=== PATIENT | female | born 1990 | race Caucasian/White ===

== ENCOUNTER 2021-07-31 15:45 | Observation (INO) | payer BC, SELFPAY ==
--- NOTE | ~2021-07-31 | US_ITS ---
EXAMINATION: US OB limited DATE: 07/31/2021 17:06 INDICATION: Light spotting, evaluate placental position and cervical length. TECHNIQUE: Real-time ultrasound of the pelvis was performed. COMPARISON: None. FINDINGS: There is a single living fetus in vertex presentation, in a longitudinal lie. The placenta is posteri or, 2.1 cm from the cervix. Cervix measures 3.9 cm and is closed without funneling. heart rate is 154 beats per minute (bpm). cardiac activity and movement are noted. The amniotic flu id volume is subjectively normal. IMPRESSION: 1. Single living fetus in vertex presentation. 2. Low-lying placenta. 3. The cervix is closed. Reviewed, dictated and finalized at location K.
[2021-07-31 16:15] VITALS: BMI 20.7
[2021-07-31 16:20] VITALS: BP 126/77; PULSE 91
[2021-07-31 17:12] LABS: Add Urine Microscopic? YES; Appearance Urine Slightly Cloudy (Clear); Bilirubin Urine Negative (Negative); Blood Urine 2+ (Negative); Color Urine Red (Yellow); Glucose Urine UA Negative (Negative); Ketones Urine Negative (Negative); Leukocyte Esterase Ur 2+ LEU/UL (Negative); Nitrate Urine Negative (Negative); Protein Urine 1+ mg/dL (Negative); Urobilinogen Urine 0.2 mg/dL (<2.0)
[2021-07-31 17:19] LABS: Squamous Epithelial Cell Urine Rare /hpf (Few); WBC Urine 0-3 /hpf
--- NOTE | 2021-07-31 18:23 | OBADM ---
This patient, Madison Read, admitted to the OB room OB Post [facility] for observation. Patient/family oriented to hospital policies and general routines including ID bracelet, bed and alarms, visiting hours, pain management, procedures, bathroom and other care routines, personal items, smoking policy, room service/diet, and visiting hours. Patient/Family are encouraged to report perceived risks to care and to ask questions if they do not understand what they are told or what they should do.
--- NOTE | 2021-08-08 13:28 | P.PNOB_ITS ---
OB - Triage/Final Diagnosis Visit Information Comments/Additional reasons for admission: I have assessed the risk for this patient, Madison Read, and determined that she would benefit from observation care. Evaluation Laboratory results: Laboratory Tests 07/31/21 16:42 Urine Color Red H Urine Appearance Slightly cloudy Urine pH 7.0 Ur Specific [place] 1.020 Urine Protein 1+ H Urine Glucose (UA) Negative Urine Ketones Negative Ur Blood (Man) 2+ H Urine Nitrate Negative Urine Bilirubin Negative Urine Urobilinogen 0.2 Leukocyte Esterase Rfl 2+ H Urine RBC 11-20 H Urine WBC 0-3 Ur Squamous Epith Cells Rare Final Diagnosis (1) False labor: Code(s): O47.9 - False labor, unspecified Status: Acute
== END 2021-07-31 18:24 | disposition home or self-care (01) ==
PROVIDERS: Admitting Provider Obstetrics & Gynecology; PCP Emergency Medicine; Visit Provider Obstetrics & Gynecology
DX: O47.02 False labor before 37 completed weeks of gestation, second trimester (principal); Z3A.23 23 weeks gestation of pregnancy
CPT/HCPCS: 76815; 81001; 87086; G0378; G0379

== ENCOUNTER 2021-11-20 06:27 | Inpatient (IN) | payer BC, SELFPAY ==
[2021-11-20] VITALS (45 sets, daily range): BP systolic 98–138; BP diastolic 43–87; PULSE 58–101; RESP 14–18; TEMP 36.6–37.7; O2SAT 98–100; BMI 26.2
--- NOTE | 2021-11-20 06:45 | LDADM ---
This patient, Madison Read, was admitted to Labor/Delivery/Recovery 107 on 11/20/21 at 06:27. Plans for labor, pain management and were discussed with patient. Patient/family oriented to hospital policies and general routines including ID bracelet, bed and alarms, visiting hours, pain management, procedures, bathroom and other care routines, personal items, smoking policy, room service/diet and guest tray routines, security routines, and visiting hours. Patient/Family are encouraged to report perceived risks to care and to ask questions if they do not understand what they are told or what they should do. See OBIX for further documentation.
[2021-11-20] MEDS: LACTATED RINGERS 1,000 ML 125 ML IV CONT ×2 (07:15→09:53)
[2021-11-20] MEDS: OXYTOCIN 30 UNITS/NS 500 ML 30 UNITS/500 ML BAG IV CONT (07:15)
[2021-11-20 07:18] LABS: Basophils Percent Auto 0.6 % (0.2-1.2); Hematocrit 29.5 % (37.0-47.0); Hemoglobin 8.9 g/dL (12.0-15.0); Immature Granulocyte Absolute 0.02 K/mm3 (0.00-0.031); Immature Granulocyte Percent A 0.3 % (0-0.5); Immature Platelet Fraction Pct 12.2 % (0.9-11.2); Lymphocytes Absolute Auto 1.86 K/mm3 (0.9-3.2); Lymphocytes Percent Auto 26.5 % (18.3-44.2); Mean Corpuscular HGB Conc 30.2 g/dl (32-36); Mean Corpuscular Hemoglobin 22.8 pg (26-34); Mean Corpuscular Volume 75.6 fl (80-100); Mean Platelet Volume 11.4 fl (7.4-10.4); Monocytes Absolute Auto 0.7 K/mm3 (0.1-0.6); Monocytes Percent Auto 9.3 % (2.6-8.5); Neutrophils Absolute Auto 4.4 K/mm3 (1.3-6.7); Neutrophils Percent Auto 63.3 % (45.5-73.1); Platelet Count Result 157 k/mm3 (150-375); Red Cell Distribution Width 15.6 % (11.5-14.5)
--- NOTE | 2021-11-20 08:49 | WPDOBADMIT ---
Obstetrics - Admit Note Admission Note: record reviewed. Additions to the history and/or subsequent changes in the physical findings follow. 31 y/o G2 1001 at 39 3/7 weeks here for induction of labor. GBS neg. AVSS NST reactive TOCO: contractions every 2-3 min ABD soft, nontender, gravid, vertex EXT nontender Cervix 4/80/-2. AROM with clear fluid. Vertex. A: IUP at term with favorable cervix, desiring induction of labor. P: Oxytocin. Anticipate .
[2021-11-20] MEDS: fentaNYL CITRATE INJ (*CRX) 100 MCG/2 ML VIAL 50 MCG IV PUSH (09:46)
--- NOTE | 2021-11-20 09:53 | WPDANESEPPF ---
Anes - Initial Pre Proc Eval Date/Time: 11/20/21 09:53 Surgeon: Prem Esparza MD Pre Op Diagnosis: iol Patient Data Age: 31 Gender: F Height: 1.6 m Weight: 67 kg Last Vital Signs Temp 36.6 C 11/20/21 08:36 Pulse 76 11/20/21 07:16 BP 124/78 11/20/21 07:16 O2 Del Method Room Air 11/20/21 06:44 Allergies Allergy/AdvReac Type Severity Reaction Status Date / Time latex Allergy Unknown Swelling Verified 11/02/21 12:34 Penicillins Allergy Unknown Rash Verified 11/02/21 12:34 Home Medications Medication Instructions Recorded Confirmed Type prenat.vits,ben,mwj-awii-syizf 1 tablet PO DAILY 11/02/21 11/02/21 History Laboratory Tests 11/20/21 11/20/21 11/20/21 06:47 06:47 06:47 WBC 7.0 K/mm3 K/mm3 (4.5-10.0) RBC 3.90 M/mm3 L M/mm3 (4.2-5.4) Hgb 8.9 g/dL L g/dL (12.0-15.0) Hct 29.5 % L % (37.0-47.0) MCV 75.6 fl L fl (80-100) MCH 22.8 pg L pg (26-34) MCHC 30.2 g/dl L g/dl (32-36) RDW 15.6 % H % (11.5-14.5) Plt Count 157 k/mm3 k/mm3 (150-375) MPV 11.4 fl H fl (7.4-10.4) Immature Gran % (Auto) 0.3 % % (0-0.5) Neut % (Auto) 63.3 % % (45.5-73.1) Lymph % (Auto) 26.5 % % (18.3-44.2) [place] % (Auto) 9.3 % H % (2.6-8.5) Eos % (Auto) 0.0 % % (0-4.4) Baso % (Auto) 0.6 % % (0.2-1.2) Lymph # (Auto) 1.86 K/mm3 K/mm3 (0.9-3.2) [place] # (Auto) 0.7 K/mm3 H K/mm3 (0.1-0.6) Eos # (Auto) 0.0 K/mm3 K/mm3 (0-0.3) Baso # (Auto) 0.0 K/mm3 K/mm3 (0.0-0.1) Abs Immat Gran (auto) 0.02 K/mm3 K/mm3 (0.00-0.031) Absolute Neuts (auto) 4.4 K/mm3 K/mm3 (1.3-6.7) Absolute Nucleated RBC 0.0 K/mm3 K/mm3 (0.0-0.012) Nucleated RBC % 0.0 % % (0.0-0.2) % Immature Plt Fraction 12.2 % H % (0.9-11.2) RPR Pending Blood Type A Positive Antibody Screen Negative Patient hx anesthesia problems: none Family hx anesthesia problems: none Results Review: All pre-operative results and documents have been reviewed as part of the pre-operative evaluation. [facility] Family History Family History (Updated 11/02/21 @ 12:38 by Pieter Grace RN) Father AVM (arteriovenous malformation) brain Kidney carcinoma Cerebrovascular accident Hypertension Mother Fibromyalgia Gestational diabetes Social History Social History Smoking status: Never smoker Alcohol intake: current Substance use: never Spiritual care concerns: No Anes - Eval Final PreProcedure Day of Procedure 11/20/21 09:53 Patient weight: overweight Heart: regular rate and rhythm Lungs: clear to auscultation and normal air movement Airway: Mallampati scale class II Neurological: alert and oriented Last oral intake: >/= 8 hours ASA classification: II Emergent: no Anesthetic plan: proceed Anesthesia type and monitoring: regional epidural Results Review: All pre-operative results and documents have been reviewed as part of the pre-operative evaluation. Informed Consent: The patient's anesthetic plan and its attendant risks and benefits were discussed with the patient/family/POA. Questions were solicited and answers provided to the satisfaction of the patient/family/POA.
--- NOTE | 2021-11-20 12:35 | PM.OBPNLAB ---
Pain Control Date/time seen: 11/20/21 12:35 Comfortable with epidural. AVSS NST reactive TOCO: contractions every 2-3 min Cervix C/+2 Begin pushing.
[2021-11-20 12:37] LABS: Amphetamine Screen Urine Negative (Negative); Barbiturate Screen Urine Negative (Negative); Benzodiazepines Screen Urine Negative (Negative); Cannabinoid Screen Urine Negative (Negative); Cocaine Screen Urine Negative (Negative); Methadone Screen Urine Negative (Negative); Opiate Screen Urine Negative (Negative); Phencyclidine Screen Urine Negative (Negative)
[2021-11-20] MEDS: METHYLERGONOVINE MALEATE 0.2 MG/ML VIAL IM (13:50)
[2021-11-20] MEDS: miSOPROStol 200 MCG TABLET 800 MCG RECTAL (13:58)
--- NOTE | 2021-11-20 14:05 | PM.OBPRVD ---
OB - Delivery Note Procedure Delivery date: 11/20/21 Procedure: Induction of labor with Induction method: Per Pitocin Protocol Delivery augmentation: Rupture of Membranes Delivery monitor: External FHT and External Uterine Route of delivery: Laceration Description: Labial Delivery repair: vicryl (3-0) Specimen: Yes (cord blood) Quantitative Blood Loss (ml): 550 Anesthesia type: Epidural Disposition: PACU Complications: None Narrative: 31 y/o at 39 3/7 weeks gestation who presented to the hospital for induction of labor. Oxytocin was administered intravenously. Amniotomy was performed with return of clear fluid. She received an epidural for pain control. Her labor progressed and her cervix dilated completely. She pushed with good effort and delivered the infant's head to the perineum, followed by the body. The nose and mouth were bulb suctioned. After a delay, the cord was clamped and cut. The was handed off the field. Cord blood was collected. The placenta delivered spontaneously and was grossly normal in appearance. The usual 3 vessel cord was noted. A right labial laceration was sustained. This was reapproximated using 3 0 Vicryl in interrupted figure of eight fashion. Vaginal bleeding associated with uterine atony was addressed with IV oxytocin, uterine massage, methergine 0.2 mg IM x 1, and Cytotec 800 mcg OR x 1. Excellent hemostasis resulted as did excellent reapproximation of the normal anatomy. Needle and instrument counts were correct. The patient was taken to recovery room in stable condition. The went to the nursery in stable condition. I was present and scrubbed for the entire delivery. Baby Date of : 11/20/21 Time of : 13:42 Weeks of gestation at delivery: 39 gender: Male Weight (pounds): 9 Weight (ounces): 1 presentation: vertex position: Right Occiput Anterior Placenta delivery description: Spontaneous and Normal Configuration Cord Vessel Description: 3 Vessels and Delayed Cord Clamping score one minute: 9 score five minutes: 9
--- NOTE | 2021-11-20 14:10 | PM.OBDSVD ---
DS: Admitting Diagnosis Discharge Date 11/22/21 Admitting Diagnosis IUP at 39 3/7 weeks DS: Discharge Diagnosis Discharge Diagnosis (1) (normal spontaneous vaginal delivery): Code(s): O80 - Encounter for full-term uncomplicated delivery Status: Acute OB - DS: Summary OB Procedures : None OB Procedures Intrapartum: Spontaneous Vag Delivery OB Procedures: : None Time Spent with Patient Time attestation: Total time spent providing and/or coordinating discharge services: DS: Data Data Completed and Pending Labs on day of discharge: Labs from last 24 hours 11/20/21 11/20/21 11/20/21 11:49 06:47 06:47 WBC RBC Hgb Hct MCV MCH MCHC RDW Plt Count MPV Immature Gran % (Auto) Neut % (Auto) Lymph % (Auto) [place] % (Auto) Eos % (Auto) Baso % (Auto) Lymph # (Auto) [place] # (Auto) Eos # (Auto) Baso # (Auto) Abs Immat Gran (auto) Absolute Neuts (auto) Absolute Nucleated RBC Nucleated RBC % % Immature Plt Fraction Urine Opiates Screen Negative Urine Methadone Screen Negative Ur Barbiturates Screen Negative Ur Phencyclidine Scrn Negative Ur Amphetamine Screen Negative U Benzodiazepines Scrn Negative Urine Cocaine Screen Negative U Cannabinoids Screen Negative RPR Pending Blood Type A Positive Antibody Screen Negative 11/20/21 06:47 WBC 7.0 RBC 3.90 L Hgb 8.9 L Hct 29.5 L MCV 75.6 L MCH 22.8 L MCHC 30.2 L RDW 15.6 H Plt Count 157 MPV 11.4 H Immature Gran % (Auto) 0.3 Neut % (Auto) 63.3 Lymph % (Auto) 26.5 [place] % (Auto) 9.3 H Eos % (Auto) 0.0 Baso % (Auto) 0.6 Lymph # (Auto) 1.86 [place] # (Auto) 0.7 H Eos # (Auto) 0.0 Baso # (Auto) 0.0 Abs Immat Gran (auto) 0.02 Absolute Neuts (auto) 4.4 Absolute Nucleated RBC 0.0 Nucleated RBC % 0.0 % Immature Plt Fraction 12.2 H Urine Opiates Screen Urine Methadone Screen Ur Barbiturates Screen Ur Phencyclidine Scrn Ur Amphetamine Screen U Benzodiazepines Scrn Urine Cocaine Screen U Cannabinoids Screen RPR Blood Type Antibody Screen Discharge Plan Discharge Attending physician on discharge: Prem Esparza Discharging Clinician: Prem Esparza Patient Disposition: Home, Self-Care Activity: pelvic rest Diet: regular Discharge Instructions: Education: Mom and Baby Guide Given to: Mother Follow-Up: Call your delivering provider's office for an appointment to be seen in: 6 Weeks Mom and baby should come to the [facility] for the follow-up appointment. Appointment Date/Time: November 23, 2021 at 3:30 pm What to expect at your follow-up visit: Blood Pressure Check Call [phone] if you are unable to keep your appointment time. BREAST CARE: * Wear a snug supportive bra. * For engorgement discomfort: Breast Feeding: * Apply warm moist washcloths * Express milk as needed to relieve engorgement * Wear loose clothing Bottle Feeding: * May apply ice packs * For sore nipples: * Identify correct latch-on * Apply warm moist washcloths before and after nursing * Air dry nipples after nursing * May apply Lansinoh cream to nipples PERINEAL CARE: * Until bleeding stops, use your hesham bottle after urinating * Change your pad frequently throughout the day * You may take sitz baths several times a day (fill your bathtub with warm water and soak for 20 minutes.) Do NOT bathe in the water * No tub baths until seen by your physician - You may shower ACTIVITY: * Rest as much as possible. * Do not exercise or lift anything heavier than your baby (such as laundry or other children.) * Avoid stairs or driving as much as possible. * Do not put anything into the vagina. No douching, tampons, or sexual activity until seen by physician. NOTIFY PHYSICIAN
[2021-11-20 15:24] LABS: Rapid Plasma Reagin Non-Reactive (NonReactive)
[2021-11-20] MEDS: WITCH HAZEL 40 PADS 1 PAD TOPICAL (16:50)
[2021-11-20] MEDS: BENZOCAINE 20% AER SPR (*SP) 56 GM CAN 1 SPRAY TOPICAL (16:50)
[2021-11-20] MEDS: ONDANSETRON INJ 4 MG/2 ML VIAL IV PUSH (16:59)
[2021-11-21] MEDS: IBUPROFEN 600 MG TABLET PO ×3 (02:09→17:11)
[2021-11-21 05:30] VITALS: BP 101/74; PULSE 92; RESP 16; TEMP 35.8
[2021-11-21 05:51] LABS: Hematocrit 23.4 % (37.0-47.0)
--- NOTE | 2021-11-21 08:12 | PM.OBPNVD ---
OB - PN: Subj Subjective Date/time seen: 11/21/21 08:12 Narrative: Pain OK. Desires circumcision for son. No shortness of breath, chest pain or lightheadedness. OB - PN: Obj Data Labs CBC & Chem 7: 11/21/21 05:36 Labs: Laboratory Results - last 24 hr 11/20/21 11/20/21 11/20/21 06:47 06:47 11:49 Hgb Hct Urine Opiates Screen Negative Urine Methadone Screen Negative Ur Barbiturates Screen Negative Ur Phencyclidine Scrn Negative Ur Amphetamine Screen Negative U Benzodiazepines Scrn Negative Urine Cocaine Screen Negative U Cannabinoids Screen Negative RPR Non-reactive Blood Type A Positive Antibody Screen Negative 11/21/21 05:36 Hgb 7.0 L Hct 23.4 L Urine Opiates Screen Urine Methadone Screen Ur Barbiturates Screen Ur Phencyclidine Scrn Ur Amphetamine Screen U Benzodiazepines Scrn Urine Cocaine Screen U Cannabinoids Screen RPR Blood Type Antibody Screen OB - PN A/P Plan Comments: A: PPD#1, doing well. P: Reviewed circ. Routine care. Exam Psych: Other: AVSS ABD soft, nontender, fundus firm EXT nontender
[2021-11-21 08:20] VITALS: BP 110/76; PULSE 86; RESP 16; TEMP 36.5; O2SAT 100
[2021-11-21] MEDS: POLYSACCHARIDE IRON COMPLEX 150 MG CAPSULE PO ×2 (08:28→17:11)
[2021-11-21] MEDS: DOCUSATE SODIUM 100 MG CAPSULE PO ×2 (08:29→17:11)
[2021-11-21] MEDS: MULTIVIT/MIN/PREN/FOL AC/IRON TABLET 1 TAB PO (08:29)
[2021-11-21] MEDS: LANOLIN (LANSINOH) 7.5 GM CREAM 1 APPLIC TOPICAL (08:30)
--- NOTE | 2021-11-21 09:46 | PC.NURSE ---
0828 - Introductions were made, then consulted with patient to assess needs related to . Mother led the conversation with her?plans to feed?her and the?experience so far. Resources provided for inpatient and outpatient services using a resource guide and mom/baby guide. Mother voiced understanding of information and will call if there is a request for assistance. Reported to primary RN.
--- NOTE | 2021-11-21 09:52 | WPDANLDPN2 ---
Anes-Prog Note L&D Date/Time: 11/21/21 09:52 Comfortable throughout: labor and delivery Neuraxial method: epidural Epidural/Spinal procedure site: clean & non-tender Neuro status: Neuro function grossly intact. Cardiovascular status: normal Respiratory status: normal Airway patency: baseline Mental status: baseline Post-Op hydration status: normal Vital Signs: Last Vital Signs Temp 97.7 F 11/21/21 08:20 Pulse 86 11/21/21 08:20 Resp 16 11/21/21 08:20 BP 110/76 11/21/21 08:20 Pulse Ox 100 11/21/21 08:20 O2 Del Method Room Air 11/20/21 18:00 Pain score (VAS): 0/10 I/O: Intake & Output 11/20/21 11/21/21 11/21/21 23:59 07:59 15:59 Intake Total 0 240 Balance 0 240 Post-procedural complaints: none Patient feedback: Patient satisfied with anesthetic care.
[2021-11-21 12:00] VITALS: BP 99/65; PULSE 78; RESP 16; TEMP 36.4; O2SAT 100
[2021-11-21 18:30] VITALS: BP 118/70; PULSE 97; RESP 18; TEMP 36.7; O2SAT 98
[2021-11-22 08:15] VITALS: BP 124/72; PULSE 82; RESP 16; TEMP 36.2; O2SAT 99
--- NOTE | 2021-11-22 08:30 | PC.NURSE ---
PT introductions made and plan of care discussed per post , breast pumping and bottle feeding, daily care activities and pain management and pending discharge. PT and sole recipient of such instructions and no barriers to learning identified at this time. PT received such instructions this shift per one to one discussion, mom baby care guide and demonstrations. PT verbalized understanding of such care.
[2021-11-22] MEDS: DOCUSATE SODIUM 100 MG CAPSULE PO (08:33)
[2021-11-22] MEDS: MULTIVIT/MIN/PREN/FOL AC/IRON TABLET 1 TAB PO (08:33)
[2021-11-22] MEDS: IBUPROFEN 600 MG TABLET PO (08:35)
[2021-11-22] MEDS: POLYSACCHARIDE IRON COMPLEX 150 MG CAPSULE PO (08:35)
[2021-11-22] MEDS: ACETAMINOPHEN 325 MG TABLET 650 MG PO (08:37)
--- NOTE | 2021-11-22 11:52 | PM.OBPNVD ---
OB - PN: Subj Subjective Date/time seen: 11/22/21 11:52 Narrative: Pain OK. Would like to go home. OB - PN: Obj Data Labs CBC & Chem 7: 11/21/21 05:36 OB - PN A/P Assessment and Plan (1) (normal spontaneous vaginal delivery): Code(s): O80 - Encounter for full-term uncomplicated delivery Status: Acute Plan Comments: A: PPD#2, doing well. P: Home to f/u 6 weeks. Exam Psych: Other: AVSS ABD soft, nontender, fundus firm EXT nontender
--- NOTE | 2021-11-22 13:12 | PC.NURSE ---
1200 - Mother led the conversation with her experience and plan to feed her so far and her ability to independently latch infant optimally without discomfort. Reminded parents to use good handwashing technique to prevent infection. Mother is feeding appropriately for growth of infant and understands stimulating to eat if needed. has had appropriate feedings in the last 24 hours meets the outcomes for weight, output and jaundice at this time. Mother states she is confident to continue effectively her infant at home or when to call for assistance and denies any additional assistance or education at this time. Reinforced understanding of milk production, transition of milk, signs of adequate intake, prevention/relief of engorgement, responsive after visualizing feeding cues, the different methods of stimulating to breastfeed 2-3 hours after the start of the last feeding, community resources, medication information reviewed per [facility] and when to call a provider using the resource of the mom and baby guide/[facility] website. Mother voiced understanding of the education shared.
--- NOTE | 2021-11-22 13:30 | PC.NURSE ---
PT received discharge instructions per protocol and verbalized understanding of such care
--- NOTE | 2021-11-22 13:55 | PC.NURSE ---
Pt discharged to home ambulatory accompanied by spouse and and taken to waiting car. Follow up appts confirmed
[2021-11-23 15:59] VITALS: BP 121/71; PULSE 104; RESP 20; TEMP 36.8; O2SAT 99
== END 2021-11-22 13:55 | disposition home or self-care (01) | DRG 807 ==
LOC: ANHLDR 14:11 → ANHOB2 17:12
PROVIDERS: Admitting Provider Obstetrics & Gynecology; PCP Emergency Medicine; Visit Provider Obstetrics & Gynecology
DX: O70.0 First degree perineal laceration during delivery (principal); Z37.0 Single live birth; Z3A.39 39 weeks gestation of pregnancy
CPT/HCPCS: 36415; 80307; 85014; 85018; 85025; 85055; 86592; 86850; 86900; 86901; A9270; J2210; J2405; J2590; J2795; J3010; J7120

== ENCOUNTER 2022-01-13 17:57 | Emergency (ER) | payer BC, SELFPAY ==
[2022-01-13 18:15] VITALS: BP 141/79; PULSE 102; RESP 18; TEMP 37.2; O2SAT 99
--- NOTE | 2022-01-13 19:25 | ED.URI ---
HPI - URI/Sore Throat General Chief Complaint: Upper Respiratory Infection Stated Complaint: sorethroat Time Seen by Provider: 01/13/22 19:19 Source: patient Mode of arrival: ambulatory Limitations: no limitations History of Present Illness HPI Narrative: Patient presents today with a 3 day history of sore throat with a fever up to 100.8 that started today. Denies cough, congestion, rhinorrhea. She currently rates her pain 5/10 has been taking ibuprofen with some relief. Related Data Allergies Allergy/AdvReac Type Severity Reaction Status Date / Time latex Allergy Unknown Swelling Verified 01/13/22 18:30 Penicillins Allergy Unknown Rash Verified 01/13/22 18:30 Review of Systems Review of Systems: CONSTITUTIONAL: Denies body aches, chills, or sweats.+ Fever EYES: Denies visual changes, redness, or discharge. ENT: Denies rhinorrhea, congestion, or otalgia.+ sore throat CARDIOVASCULAR: Denies chest pain, palpitations, or edema. RESPIRATORY: Denies cough or dyspnea. GASTROINTESTINAL: Denies abdominal pain, nausea, vomiting, or diarrhea. GENITOURINARY: Denies dysuria or hematuria. SKIN: Denies rash, itching, or wounds. MUSCULOSKELETAL: Denies back pain, joint pain, or myalgia. NEUROLOGIC: Denies headache, numbness, tingling, or weakness. PSYCH: Denies depression or anxiety. [facility] Family History Family History (Reviewed 01/13/22 @ 19:27 by Emilie Chiang, [facility], ) Father AVM (arteriovenous malformation) brain Kidney carcinoma Cerebrovascular accident Hypertension Mother Fibromyalgia Gestational diabetes Social History Social History (Reviewed 01/13/22 @ 19:27 by Emilie Chiang, [facility], ) Smoking status: Never smoker Alcohol intake: current Substance use: never Spiritual care concerns: No Comments At time of signature, I have reviewed and agree with nursing past medical, surgical, social and family history unless otherwise noted. Please see nursing chart for further information. There is no relevant family history pertinent to the presenting complaint Exam Narrative: GENERAL: Well-appearing, well-nourished, and in no acute distress. HEAD: Normocephalic, atraumatic. EYES: EOMI. No redness or drainage. Conjunctivae normal. ENT: Mucous membranes pink and moist. Nares clear. No rhinorrhea. TMs normal bilaterally. Throat erythematous and edematous with small amount of exudate. Uvula midline. NECK: Normal AROM. Supple. No lymphadenopathy. CHEST: No respiratory distress. Clear to auscultation. HEART: Regular rate and rhythm. No murmur appreciated. Normal peripheral pulses. EXTREMITIES: Normal range of motion. No edema. SKIN: Warm, dry, no rash. Capillary refill normal. Normal skin turgor. NEURO: No focal deficits. Alert and oriented x3. Gait steady. PSYCH: Normal affect. No signs of depression or anxiety. Course Course Level of Care: Express Care Visit Vital Signs Vital signs: Vital Signs Temperature 99 F 01/13/22 18:15 Pulse Rate 102 H 01/13/22 18:15 Respiratory Rate 18 01/13/22 18:15 Blood Pressure 141/79 H 01/13/22 18:15 Pulse Oximetry 99 01/13/22 18:15 Oxygen Delivery Room Air 01/13/22 18:15 Temperature 99 F 01/13/22 18:15 Pulse Rate 102 H 01/13/22 18:15 Respiratory Rate 18 01/13/22 18:15 Blood Pressure 141/79 H 01/13/22 18:15 Pulse Oximetry 99 01/13/22 18:15 Oxygen Delivery Room Air 01/13/22 18:15 Reviewed. Pt has been instructed to follow up with her PCP regarding her elevated blood pressure today. MDM - URI/Sore Throat Differential Diagnosis Differential diagnosis: Likely upper respiratory infection, viral infection, pharyngitis and other ( strep throat) Lab Data Attestation: I reviewed the patient's lab results. Labs: Strep Screen Presumptive Negative *(Reference Range: Negative)* Critical Care Time Critical Care Time Critical Care Time: No Discharge Anu
== END 2022-01-13 19:30 | disposition home or self-care (01) ==
PROVIDERS: Emergency Provider Nurse Practitioner; PCP Emergency Medicine
DX: J02.8 Acute pharyngitis due to other specified organisms (principal)
CPT/HCPCS: 87081; 87880; 99213; G0463

== ENCOUNTER 2023-12-28 13:40 | Emergency (ER) | payer BC, SELFPAY ==
--- NOTE | 2023-12-28 13:44 | ED_ITS ---
HPI - General Adult General Chief complaint: Skin/Abscess/Foreign Body Stated complaint: Rash over body Time Seen by Provider: 12/28/23 13:43 Source: patient Mode of arrival: ambulatory Limitations: no limitations History of Present Illness HPI narrative: 33-year-old female patient presents to [facility] with complaints of a rash that started abruptly this morning. Patient states the rash started on her thighs at 1st and has been spreading throughout the day. Patient states it is itchy and did take some Benadryl about 2 hours ago of 50 mg. Patient states the Benadryl has been helping. Patient states she was recently started on Lamictal about 2 weeks ago and her doctor told her it could cause a rash. Patient denies any shortness of breath or coughing. Denies any issues with swallowing. Related Data Home Medications Medication Instructions Recorded Confirmed etonogestrel 68 mg subdermal 1 implant subdermal ONCE 12/28/23 12/28/23 implant (Nexplanon) lamotrigine 100 mg tablet mg 12/28/23 sertraline 100 mg tablet mg 12/28/23 sertraline 50 mg tablet mg 12/28/23 Allergies Allergy/AdvReac Type Severity Reaction Status Date / Time latex Allergy Unknown Swelling Verified 12/28/23 13:51 Penicillins Allergy Unknown Rash Verified 12/28/23 13:51 Review of Systems Review of Systems: CONSTITUTIONAL: Denies fever, chills, or sweats. EYES: Denies visual changes, redness, or discharge. ENT: Denies rhinorrhea, congestion, sore throat, or otalgia. CARDIOVASCULAR: Denies chest pain, palpitations, or edema. RESPIRATORY: Denies cough or dyspnea. GASTROINTESTINAL: Denies abdominal pain, nausea, vomiting, or diarrhea. GENITOURINARY: Denies dysuria or hematuria. SKIN: Positive rash with itching. MUSCULOSKELETAL: Denies back pain, joint pain, or myalgia. NEUROLOGIC: Denies headache, numbness, or weakness. PSYCHIATRIC: Denies anxiety or depression. [facility] Past Medical History Medical History (Updated 12/28/23 @ 14:09 by ELINOR Sawyer) Migraines Family History Family History Father AVM (arteriovenous malformation) brain Kidney carcinoma Cerebrovascular accident Hypertension Mother Fibromyalgia Gestational diabetes Social History Social History Smoking status: Never smoker Alcohol intake: current Substance use: never Spiritual care concerns: No Comments At the time of my signature I agree with nursing past medical history, surgical, social, and family history. There is no relevant family history pertinent to the presenting complaint. Exam Narrative: GENERAL: Well-appearing, well-nourished, and in no acute distress. HEAD: Normocephalic, atraumatic. EYES: PERRLA and EOMI. ENT: Nares clear, no rhinorrhea or epistaxis. Mucous membranes moist. Posterior pharynx with erythema but no tonsillar enlargement, no exudates or lesions present. NECK: Supple. No lymphadenopathy. No stridor noted on auscultation CHEST: Clear to auscultation. No respiratory distress. patient able talk in clear complete Sentences. HEART: Regular rate and rhythm. No murmur heard. Normal peripheral pulses. ABDOMEN: Soft, nontender, nondistended, normal active bowel sounds. EXTREMITIES: Normal range of motion. No edema. SKIN: Warm, dry, patient has erythema macule papule rash noted throughout bilateral upper extremities, bilateral lower extremities, the trunk and the back. No open wounds NEURO: No focal deficits. Alert and oriented x3. Course Course Level of Care: Express Care Visit Vital Signs Vital signs: Vital Signs Temperature 37.2 C 12/28/23 13:47 Pulse Rate 131 H 12/28/23 13:47 Respiratory Rate 18 12/28/23 13:47 Blood Pressure 128/82 12/28/23 13:47 Pulse Oximetry 98 12/28/23 13:47 Oxygen Delivery Room Air 12/28/23 13:47 Temperature 37.2 C 12/28/23 13:47 Pulse Rate 131 H 12/28/23 13:47 Respiratory Rate 18 12/28/23 13:47 Blood Pressure 128/82 12/28/23 13:47 Pulse Oximetry 98 12/28/23 13:47 Oxygen Delivery Room Air 12/28/23 13:47 vital signs reviewed Medical Decision Making MDM Narrative Medical decision making narrative: Discussed with patient this does appear to be some hives. Discussed with her that she can continue taking the Benadryl may also want to try some [id number] Monika twice a day until the rash is gone. Discussed with patient to discuss with her doctor about the new medication and if it is worth taking her off of it or if they believe this is related. Discussed with patient if her symptoms worsen and she develops coughing, shortness of breath, trouble swallowing or any other concerning symptoms I highly recommend that she go to the ER for further evaluation. Patient verbalized understanding denies any other questions or concerns at this time. Differential Diagnosis Differential Diagnosis: differential diagnosis: Contact dermatitis, poison huey, poison sumac, psoriasis, eczema, allergic reaction, drug reaction, scabies, tinea syphilis, lung disease, viral exanthema, pityriasis, erythema multiforme. Vital Signs Vital Signs: Vital Signs Temperature 37.2 C 12/28/23 13:47 Pulse Rate 131 H 12/28/23 13:47 Respiratory Rate 18 12/28/23 13:47 Blood Pressure 128/82 12/28/23 13:47 Pulse Oximetry 98 12/28/23 13:47 Oxygen Delivery Room Air 12/28/23 13:47 Temperature 37.2 C 12/28/23 13:47 Pulse Rate 131 H 12/28/23 13:47 Respiratory Rate 18 12/28/23 13:47 Blood Pressure 128/82 12/28/23 13:47 Pulse Oximetry 98 12/28/23 13:47 Oxygen Delivery Room Air 12/28/23 13:47 Critical Care Time Critical Care Time Critical Care Time: No Discharge Plan Discharge Clinical Impression: Acute urticaria Patient Disposition: Home, Self-Care Condition: Stable Instructions: Antibiotic Form, Urticaria (ED) Additional Instructions: Wash the area with soap and cool water only. Use skin creams/lotion or anti-itch medicine to reduce itchiness Avoid scratching when possible to prevent worsening of the condition and disruption of the skin that could lead to bacterial infection may take [id number] Monika twice a day until the rash is gone. May also take Benadryl every 4-6 hours as needed. To relieve itching, place a cool washcloth or some ice over the area that itches, rather than scratching Follow up with primary care provider or seek ER if you have trouble breathing, become hoarse, or start wheezing, develop belly cramps, vomiting or feel dizzy. Prescriptions: No Action sertraline 100 mg tablet sertraline 50 mg tablet lamotrigine 100 mg tablet Nexplanon 68 mg Implant 1 implant SUBDERMAL ONCE Rx Instructions: as a single dose Follow-up/Referrals: Heladio Hearn MD [Primary Care Provider] - Time of Disposition: 14:05
[2023-12-28 13:47] VITALS: BP 128/82; PULSE 131; RESP 18; TEMP 37.2; O2SAT 98
== END 2023-12-28 14:10 | disposition home or self-care (01) ==
PROVIDERS: Emergency Provider Nurse Practitioner Family; PCP Emergency Medicine
DX: L50.9 Urticaria, unspecified (principal)
CPT/HCPCS: 99211; G0463

== ENCOUNTER 2023-12-29 08:29 | Emergency (ER) | payer BC, SELFPAY ==
[2023-12-29 08:34] VITALS: BP 132/80; PULSE 118; RESP 20; TEMP 36.6; O2SAT 98
[2023-12-29 09:21] VITALS: O2SAT 100
[2023-12-29 09:23] VITALS: PULSE 95; RESP 18; O2SAT 100
[2023-12-29 09:24] VITALS: BP 115/76
[2023-12-29] MEDS: diphenhydrAMINE HCl INJ 50 MG/ML VIAL IV PUSH (10:12)
[2023-12-29] MEDS: methylPREDNISolone SOD SUCC 125 MG VIAL IV PUSH (10:12)
[2023-12-29] MEDS: SODIUM CHLORIDE 0.9% IV 1,000 ML 999 ML IV CONT (10:12)
[2023-12-29] MEDS: FAMOTIDINE 20 MG/2 ML VIAL IV PUSH (10:12)
[2023-12-29 10:21] VITALS: BP 111/74; PULSE 90; RESP 20; O2SAT 99
--- NOTE | 2023-12-29 10:29 | ED_ITS ---
HPI - Allergic Reaction General Chief complaint: Allergic Reaction Stated complaint: allergic reaction to Lamictal Time Seen by Provider: 12/29/23 09:17 Source: patient Mode of arrival: ambulatory Limitations: no limitations History of Present Illness HPI narrative: Patient is a 33-year-old female who presents the ED with report of allergic reaction. Patient reports she was recently started on Lamictal for mental health around 2 weeks ago. She had her dose increased last week. Yesterday she began noticing hives on her upper thighs. States the rash has progressed to involve her trunk/back/ abdomen my and woke up this morning with hives on her face and neck. she has not taking Lamictal for the last 2 days. She has been taking Benadryl at home without much change. The rash is itchy. She denies any difficulty breathing or swallowing, swelling in throat, nausea, vomiting. She denies any history of previous allergic reactions like this. Denies any other new medications, soaps, detergents, foods. Related Data Home Medications Medication Instructions Recorded Confirmed etonogestrel 68 mg subdermal 1 implant subdermal ONCE 12/28/23 12/28/23 implant (Nexplanon) lamotrigine 100 mg tablet 100 mg DIRECTED 12/28/23 12/28/23 sertraline 100 mg tablet 100 mg DIRECTED 12/28/23 12/28/23 sertraline 50 mg tablet 50 mg DIRECTED 12/28/23 12/28/23 Allergies Allergy/AdvReac Type Severity Reaction Status Date / Time latex Allergy Unknown Swelling Verified 12/29/23 08:38 Penicillins Allergy Unknown Rash Verified 12/29/23 08:38 lamotrigine [From Lamictal] Allergy Hives Verified 12/29/23 08:38 Review of Systems Review of Systems: All systems reviewed & are unremarkable except as noted in HPI. All systems reviewed & are unremarkable except as noted in HPI and below PMFSH Past Medical History Medical History Migraines Family History Family History Father AVM (arteriovenous malformation) brain Kidney carcinoma Cerebrovascular accident Hypertension Mother Fibromyalgia Gestational diabetes Social History Social History (Reviewed 12/29/23 @ 10:35 by RETA Troncoso Smoking status: Never smoker Alcohol intake: current Substance use: never Spiritual care concerns: No Exam Narrative: GENERAL: Well appearing, thin, non-toxic, in no acute distress. HEAD: Normocephalic, atraumatic. ENT: No oral mucosal lesions. No stridor or trismus. No significant facial swelling. RESPIRATORY: Airway patent, respirations nonlabored. No distress. No stridor. CARDIOVASCULAR: Borderline tachycardic with regular rhythm without murmurs, rubs, or gallops. MUSCULOSKELETAL: Moves all extremities. No gross deformities. SKIN: Warm, dry, normal color. Diffuse urticaria to upper/lower extremities, trunk, abdomen, face, neck. Blanchable. Skin integrity intact - no vesicles, blisters, necrosis, sloughing of skin. NEURO: A&O X3. Speech clear. No ataxic movements. PSYCHIATRIC: Appropriate mood and affect. Normal interaction. Course Vital Signs Vital signs: Vital Signs Temperature 97.8 F 12/29/23 08:34 Pulse Rate 118 H 12/29/23 08:34 Respiratory Rate 20 12/29/23 08:34 Blood Pressure 132/80 12/29/23 08:34 Pulse Oximetry 98 12/29/23 08:34 Oxygen Delivery Room Air 12/29/23 08:34 Temperature 97.8 F 12/29/23 12:23 Pulse Rate 77 12/29/23 12:23 Respiratory Rate 18 12/29/23 12:23 Blood Pressure 115/87 12/29/23 12:23 Pulse Oximetry 99 12/29/23 12:23 Oxygen Delivery Room Air 12/29/23 09:21 MDM - Allergic Reaction MDM Narrative Medical decision making narrative: patient presented to ED with allergic reaction, recently started on Lamictal for mental health issues. Patient was tachycardic upon arrival, this was resolved by the time of my evaluation. Exam with diffuse urticaria. No signs of anaphylaxis or respiratory involvement /distress/ compromise. No 2 system involvement. No evidence of SJS/TEN. no oral mucosal lesions or oral i nvolvement. Patient given fluids, Benadryl, Pepcid, Solu-Medrol in the ED. On re-evaluation , she is feeling improved. States itching is improved. Rash does appear improved, but is not completely resolved. At this time, feel patient is safe for discharge home with continued steroids. Advised to continue Benadryl. Discussed signs and symptoms of SJS, strict return precautions should rash cont inue to worsen. Patient is in agreement this plan and feels comfortable discharge home. Recommended close follow-up with PCP for further evaluation. Discharged in stable condition. Medical Records Attestation: I reviewed the patient's medical records. Discharge Plan Discharge Clinical Impression: Urticaria Adverse reaction to drug Qualifiers: Encounter type: initial encounter Qualified Code(s): T50.905A - Adverse effect of unspecified drugs, medicaments and biological substances, initial encounter Patient Disposition: Home, Self-Care Condition: Stable Instructions: Antibiotic Form, Urticaria (ED), Acute Rash (ED), General Allergic Reaction (ED) Additional Instructions: Continue Benadryl for rash/itching. Take Pepcid twice daily. Take steroids a s prescribed for the next 5 days starting tomorrow (12/29). Continue to avoid use of Lamictal. Follow-up closely with your primary care doctor for further evaluation and to ensure improvement of symptoms. Return to the ED if you experience worsening or severe rash, swelling of mouth/ lips / throat/ tongue, lesions or blisters of lips or mouth, peeling of skin, fevers, unable to keep down food or drink, difficulty breathing or swallowing, or any other symptoms of concern. Prescriptions: New prednisone 50 mg tablet 50 mg PO DAILY Qty: 5 0RF No Action sertraline 100 mg tablet 100 mg DIRECTED sertraline 50 mg tablet 50 mg DIRECTED lamotrigine 100 mg tablet 100 mg DIRECTED Nexplanon 68 mg Implant 1 implant SUBDERMAL ONCE Rx Instructions: as a single dose Follow-up/Referrals: Heladio Hearn MD [Primary Care Provider] - Time of Disposition: 12:12
[2023-12-29 12:23] VITALS: BP 115/87; PULSE 77; RESP 18; TEMP 36.6; O2SAT 99
== END 2023-12-29 12:25 | disposition home or self-care (01) ==
PROVIDERS: Emergency Provider Physician Assistant; PCP Emergency Medicine
DX: L50.9 Urticaria, unspecified (principal); T50.905A Adverse effect of unspecified drugs, medicaments and biological substances, initial encounter
CPT/HCPCS: 96361; 96374; 96375; 99284; J1200; J2919; J7030

== ENCOUNTER 2025-02-16 11:03 | Outpatient (CLI) | payer BC, SELFPAY ==
--- OUTSIDE RECORDS SUMMARY | 2025-02-16 11:30 | XMS_ITS | Clinical Summary ---
Author Organization [facility] Address [address] [place] [address] Care Team Providers Care [employer] Inspector Name Role Phone Heladio Hearn MD Primary Care Provider [phone] Allergies Active Allergy Reactions Criticality Noted Date Comments Latex Unknown 04/01/2021 Penicillins Unknown 04/01/2021 Medications venlafaxine XR 150 MG 24 hr capsule Take 150 mg by mouth daily. Active busPIRone 10 MG tablet Take 10 mg by mouth 2 (two) times daily. Active Social History Tobacco Use Types Packs/Day Years Used Date Smoking Tobacco: Never Smokeless Tobacco: Never Alcohol Use Standard Drinks/Week Comments Not Currently 0 (1 standard drink = 0.6 oz pur e alcohol) Comments Yes Sex and Gender Information Value Date Recorded Sex Assigned at Not on file Legal Sex Female 6:02 PM [employer] Gender Identity Not on file Sexual Orientation Not on file Last Filed Vital Signs Vital Sign Reading Time Taken Comments Blood Pressure 128/75 04/01/2021 7:30 PM [employer] Pulse 98 04/01/2021 6:12 PM [employer] Temperature 36.6 C (97.8 F) 04/01/2021 6:12 PM [employer] Respiratory Rate 17 04/01/2021 6:12 PM [employer] Oxygen Saturation 100% 04/01/2021 7:40 PM [employer] Inhaled Oxygen Concentration - - Weight 49.9 kg (110 lb) 04/01/2021 6:12 PM [employer] Height 160 cm (5' 3) 04/01/2021 6:12 PM [employer] Body Mass Index 19.49 04/01/2021 6:12 PM [employer] Plan of Treatment Health Maintenance Due Date Last Done Comments Cervical Cancer Screening Pa p Smear (Age 30 to 64) Every 3 Years 1991 Annual Physical 05/20/1994 Hepatitis C 05/20/2009 DTaP, Tdap and Td Vaccines ( 1 - Tdap) 05/20/2010 Hepatitis B Vaccines (1 of 3 - 19+ 3-dose series) 05/20/2010 HPV Vaccines (1 - 3-dose SCD M series) 05/20/2018 Cervical Cancer Screening Pa p with HPV Testing (Age 30 to 64) Every 5 Years 05/20/2021 Cervical Cancer Screening wi th HPV 05/20/2021 COVID-19 Vaccine (3 - 2024-2 6 season) 2024 05/11/2020, 04/13/2020 Influenza Adult (#1) 2024 RSV Immunization or 60+ Years (1 - 1-dose 75+ series) 05/20/2066 Hepatitis A Vaccines Aged Out No long er eligible based on patient's age to complete this topic Meningococcal B Vaccine Aged Out No l onger eligible based on patient's age to complete this topic Meningococcal Vaccine Aged Out No emery bladimir eligible based on patient's age to complete this topic Pneumococcal Vaccine: Pediatrics (0 to 5 Years) and At-Risk Patients (6 to 49 Years) Aged Out No longer eligible b ased on patient's age to complete this topic RSV Immunizations Under 20 Months Aged Out No longer eligible b ased on patient's age to complete this topic Insurance Care Teams [employer] Inspector Relationship Specialty Start Date End Date Heladio Hearn MD PCP - General FAMILY PRACTICE 04/01/21
[2025-02-16 11:35] LABS: Add Urine Microscopic? YES; Appearance Urine Cloudy (Clear); Glucose Urine UA Negative (Negative); Leukocyte Esterase Ur 1+ LEU/UL (Negative); Need Manual Microscopic Reviewed; Nitrate Urine Negative (Negative); Specific Grav Ur 1.015 (1.001-1.035)
[2025-02-16 12:14] LABS: Hepatitis B Surface Antigen Negative (Negative)
[2025-02-16 12:17] LABS: Syphilis IgG/IgM Antibody Non-Reactive (Nonreactive)
[2025-02-16 12:34] LABS: HIV 1/2 Ab P24 Ag Result Negative (Negative)
[2025-02-16 13:20] LABS: Thyroid Stimulating Hormone 1.660 uIU/mL (0.465-4.680)
[2025-02-17 10:08] LABS: Varicella-Zoster Ab, IgG Reactive (Non Reactive)
== END 2025-02-16 11:04 | disposition home or self-care (01) ==
LOC: ANHLAB 11:04
PROVIDERS: PCP Emergency Medicine; Visit Provider Obstetrics & Gynecology
DX: Z34.90 Encounter for supervision of normal pregnancy, unspecified, unspecified trimester (principal); Z3A.00 Weeks of gestation of pregnancy not specified
CPT/HCPCS: 36415; 81001; 83020; 84443; 85660; 86593; 86703; 86762; 86787; 86803; 86850; 87086; 87340; G0432